=== PATIENT | female | born 1950 | race Caucasian/White ===

== ENCOUNTER → 2018-08-03 | Outpatient (CLI) | payer OTHER | END | disposition home or self-care (01) | LOC: US 12:30 | DX: E04.9 Nontoxic goiter, unspecified (principal) ==

== ENCOUNTER → 2018-08-17 | Outpatient (CLI) | payer OTHER ==
[2018-08-17 13:28] LABS: BUN 12 mg/dl (7-24); CHLORIDE 108 mmol/L (98-107); CREATININE 0.73 mg/dL (0.55-1.02); FREE T4 1.02 ng/dl (0.76-1.46); POTASSIUM 4.2 mmol/L (3.5-5.1); SODIUM 141 mmol/L (136-145)
[2018-08-18 08:13] LABS: THYROID PEROXIDASE (TPO) AB 117 IU/mL (0-34)
[2018-08-18 14:10] LABS: THYROGLOBULIN ANTIBODY <1.0 IU/mL (0.0-0.9)
== END | disposition home or self-care (01) ==
LOC: LAB 12:36
PROVIDERS: Internal Medicine
DX: E03.9 Hypothyroidism, unspecified (principal); E55.9 Vitamin D deficiency, unspecified

== ENCOUNTER → 2019-01-06 | Outpatient (CLI) | payer OTHER | END | disposition home or self-care (01) | LOC: MAMMO 12-09 10:40 | DX: Z12.31 Encounter for screening mammogram for malignant neoplasm of breast (principal) ==

== ENCOUNTER → 2020-08-22 | Outpatient (CLI) | payer OTHER | END | disposition home or self-care (01) | LOC: RAD 08-16 14:00 → MAMMO 08-16 14:30 → RAD 13:30 | PROVIDERS: ATTEND Nurse Practitioner Primary Care | DX: Z12.31 Encounter for screening mammogram for malignant neoplasm of breast (principal); Z78.0 Asymptomatic menopausal state; M85.80 Other specified disorders of bone density and structure, unspecified site ==

== ENCOUNTER → 2021-08-26 | Outpatient (CLI) | payer OTHER | END | disposition home or self-care (01) | LOC: MAMMO 09:30 | PROVIDERS: ATTEND Nurse Practitioner Primary Care | DX: Z12.31 Encounter for screening mammogram for malignant neoplasm of breast (principal); N64.89 Other specified disorders of breast ==

== ENCOUNTER → 2022-10-01 | Outpatient (CLI) | payer MEDICARE | LOC: MRI 02:28 | PROVIDERS: ATTEND Specialist | DX: M19.041 Primary osteoarthritis, right hand (principal); M19.042 Primary osteoarthritis, left hand; Z87.39 Personal history of other diseases of the musculoskeletal system and connective tissue ==

== ENCOUNTER → 2023-10-12 | Outpatient (CLI) | payer MEDICARE | END | disposition home or self-care (01) | LOC: MAMMO 10-05 09:00 | PROVIDERS: ATTEND Internal Medicine | DX: Z12.31 Encounter for screening mammogram for malignant neoplasm of breast (principal); M85.851 Other specified disorders of bone density and structure, right thigh; N64.9 Disorder of breast, unspecified ==

== ENCOUNTER → 2025-04-03 | Outpatient (CLI) | payer OTHER ==
[2025-04-03 12:34] LABS: BASO # 0.1 10*3/uL (0.0-0.1); BASO % 1.0 % (0.0-1.0); EOS # 0.3 10*3/uL (0.0-0.4); EOS % 4.6 % (1.0-4.0); MEAN CELL VOLUME 86.9 fl (81.0-99.0); MEAN CORPUSCULAR HGB 27.6 pg (27.0-31.0); MEAN PLATELET VOLUME 9.8 fl (9.6-12.3); MONO # 0.5 10*3/uL (0.1-1.0); MONO % 6.7 % (3.0-9.0); NEUT # 3.4 10*3/uL (2.3-7.9); NEUT % 51.1 % (47.0-73.0); NUCLEATED RED BLOOD CELL 0.0 % (0.0-0.0); NUCLEATED RED BLOOD CELL 0.0 10*3/uL (0.0-0.0); PLATELET COUNT AUTOMATED 328 10*3/uL (130-400); RED CELL DISTRI WIDTH 13.6 % (0-14.5)
[2025-04-03 13:08] LABS: BUN 16 mg/dl (9-23); LDL CHOLESTEROL 141 mg/dL (9-159); SGPT/ALT 10 U/L (5-49)
== END | disposition home or self-care (01) ==
LOC: LAB 12:08
PROVIDERS: ATTEND Internal Medicine
DX: E03.9 Hypothyroidism, unspecified (principal); F32.9 Major depressive disorder, single episode, unspecified; E55.9 Vitamin D deficiency, unspecified